=== PATIENT | female | born 1955 | race Caucasian/White ===

== ENCOUNTER 2022-12-19 20:42 | Emergency (ER) | payer MEDICARE, OTHER ==
[~2022-12-19] VITALS: Ht 170.2 cm; Wt 86.2 kg
[~2022-12-19 20:42] MED LIST: ACET-10509 PO; ONDA-188 PO; [UNRECOGNIZED DRUG - CODE] PO
[2022-12-19 20:44] VITALS: BP 159/90; PULSE 88; RESP 14; TEMP 98.1; O2SAT 99
[2022-12-19] MEDS ORDERED: KETOROLAC 60 MG/2 ML VIAL IM ONE (22:45)
[2022-12-19] MEDS ORDERED: IBUP-2213 PO (23:15)
[2022-12-19 23:21] VITALS: BP 159/90; PULSE 88; RESP 14; TEMP 98.1; O2SAT 99
== END 2022-12-19 23:21 | disposition home or self-care (01) ==
LOC: MED 20:42
DX: S40.012A Contusion of left shoulder, initial encounter (principal); I10 Essential (primary) hypertension; E07.9 Disorder of thyroid, unspecified; Z79.899 Other long term (current) drug therapy; W51.XXXA Accidental striking against or bumped into by another person, initial encounter; Y93.89 Activity, other specified; Y92.89 Other specified places as the place of occurrence of the external cause; Y99.8 Other external cause status
CPT/HCPCS: 73030; 96372; 99283; J1885